=== PATIENT | female | born 1970 | race Caucasian/White ===

== ENCOUNTER 2018-06-28 11:33 | Day surgery (SDC) | payer BC ==
[2018-06-28 11:46] VITALS: BMI 25.4
[2018-06-28] MEDS ORDERED: SODIUM CHLORIDE 0.9% 500 ML INFUS.BAG IV ONE (12:38)
--- NOTE | 2018-06-28 12:42 | PDOC ---
Attending Attestation - Resident Resident Name: Lindy Cuello - ED Attending Attestation I have performed the following: I have examined & evaluated the patient, The case was reviewed & discussed with the resident, I agree w/resident's findings & plan, Exceptions are as noted - HPI HPI: 48 yo F history fibroids presents with heavy vaginal bleeding for weeks, now with lightheadedness, weakness. Sent by Dr. Dolan for evaluation for poss symptomatic anemia due to vaginal bleeding. - Physicial Exam PE: GENERAL: Awake, alert, and fully oriented, in no acute distress HEAD: No signs of trauma EYES: PERRLA, EOMI, sclera anicteric, conjunctiva pale ENT: Auricles normal inspection, hearing grossly normal, nares patent, oropharynx clear without exudates. Moist mucosa NECK: Normal ROM, supple, no lymphadenopathy, JVD, or masses LUNGS: Breath sounds equal, clear to auscultation bilaterally. No wheezes, and no crackles HEART: Regular rate and rhythm, normal S1 and S2, no murmurs, rubs or gallops ABDOMEN: Soft, nontender, normoactive bowel sounds. No guarding, no rebound. No masses EXTREMITIES: Normal range of motion, no edema. No clubbing or cyanosis. No cords, erythema, or tenderness NEUROLOGICAL: Cranial nerves II through XII grossly intact. Normal speech, normal gait. Motor and sensation intact. SKIN: Warm, Dry, normal turgor, no rashes or lesions noted. +Pallor. - Medical Decision Making Pt with weakness, found to have Hb 7. D/w Dr. Dolan, will admit.
[2018-06-28 13:17] LABS: BASO % 0.9 % (0-2.0); EOS % 0.5 % (0-4.5); HEMATOCRIT 22.8 % (32.4-45.2); LYMPH % 34.3 % (8-40); MCH 21.7 pg (25.7-33.7); MCHC 30.7 g/dl (32.0-36.0); MEAN CELL VOLUME 70.7 fl (80-96); MEAN PLT VOLUME 8.2 fl (7.5-11.1); NEUT % 60.3 % (42.8-82.8); PLATELET COUNT 366 K/MM3 (134-434); RBC 3.22 M/mm3 (3.60-5.2); RDW 16.9 % (11.6-15.6); WHITE BLOOD COUNT 7.9 K/mm3 (4.0-10.0)
[2018-06-28 13:31] LABS: INR 1.05 (0.83-1.09); PROTHROMBIN TIME (PATIENT) 12.4 SEC (9.7-13.0)
[2018-06-28 13:47] LABS: ALBUMIN 3.7 g/dl (3.4-5.0); ALK PHOS 94 U/L (45-117); ANION GAP 6 MMOL/L (8-16); BILIRUBIN,TOTAL 0.3 mg/dL (0.2-1); BLOOD UREA NITROGEN 8 mg/dL (7-18); CALCIUM 8.7 mg/dL (8.5-10.1); CHLORIDE 106 mmol/L (98-107); CO2 25 mmol/L (21-32); CREATININE 0.6 mg/dL (0.55-1.3); GLUCOSE,RANDOM 96 mg/dL (74-106); POTASSIUM 3.6 mmol/L (3.5-5.1); SGOT/AST 18 U/L (15-37); SGPT/ALT 18 U/L (13-61); SODIUM 137 mmol/L (136-145); TOT PROT 7.4 g/dl (6.4-8.2)
--- NOTE | 2018-06-28 13:47 | PDOC ---
History of Present Illness - General Chief Complaint: Blood Transfusion Stated Complaint: VAGINAL BLEEDING Time Seen by Provider: 06/28/18 11:55 History Source: Patient Exam Limitations: No Limitations - History of Present Illness Initial Comments: 06/28/18 13:49 This is a 48 YOF who is (had two children years after because of chronic health problems) who p/w heavy vaginal bleeding worsening over the past Past History - Past Medical History Allergies/Adverse Reactions: Allergies Allergy/AdvReac Type Severity Reaction Status Date / Time No Known Allergies Allergy Verified 06/28/18 11:41 Home Medications: Ambulatory Orders NK [No Known Home Medication] 06/28/18 COPD: No - Immunization History Immunization Up to Date: Yes - Suicide/Smoking/Psychosocial Hx Smoking History: Never smoked Hx Alcohol Use: No Drug/Substance Use Hx: No Substance Use Type: None *Physical Exam - Vital Signs Last Vital Signs Temp Pulse Resp BP Pulse Ox 92 H 18 134/77 100 06/28/18 11:42 06/28/18 11:42 06/28/18 11:42 06/28/18 11:42 ED Treatment Course - LABORATORY CBC & Chemistry Diagram: 06/28/18 12:40 06/28/18 12:40 - ADDITIONAL ORDERS Additional order review: Laboratory Results 06/28/18 12:40 PT with INR 12.40 INR 1.05 06/28/18 12:40 RBC 3.22 L MCV 70.7 L MCHC 30.7 L RDW 16.9 H MPV 8.2 Neutrophils % 60.3 Lymphocytes % 34.3 Monocytes % 4.0 Eosinophils % 0.5 Basophils % 0.9 - Medications Given in the ED: ED Medications Discontinued Medications Generic Name Dose Route Start Last Admin Trade Name Freq PRN Reason Stop Dose Admin Sodium Chloride 1,000 ml 06/28/18 12:38 06/28/18 13:00 Normal Saline - IV 06/28/18 12:39 1,000 ml ONCE ONE Administration Medical Decision Making - Medical Decision Making 06/28/18 13:[address] Ellsworth, informed her the patient arrived, Hgb is 7.0. Will do a pelvic exam to quantify bleeding/clots. *DC/Admit/Observation/Transfer Diagnosis at time of Disposition: Vaginal bleeding, Fibroids, Anemia - Discharge Dispostion Condition at time of disposition: Guarded Decision to Admit order: Yes - Referrals - Patient Instructions - Post Discharge Activity
[2018-06-28 15:24] LABS: ANISOCYTOSIS 1+; MACROCYTOSIS 0; PLATELET ESTIMATE NORMAL; ROULEAU 1+
[2018-06-28] MEDS ORDERED: SUCCINYLCHOLINE CHLORIDE 200 MG/10 ML VIAL ONE (16:53)
[2018-06-28] MEDS ORDERED: PROPOFOL 20 ML ONE (16:53)
--- NOTE | 2018-06-28 17:01 | HP ---
Admitting History and Physical - Admission Chief Complaint: Heavy vaginal bleeding, weakness. History of Present Illness: 48 yo with significant past medical history of fibroids who presented to the office early June with complaints of heavy vaginal bleeding for several weeks. Ultrasound examination revealed two dominant uterine fibroids. An endometrial biopsy was obtained, results were benign. Pt started on Tranexamic acid due to heavy bleeding. 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 Hgb 7.0 upon admission. Pt admitted to hospital with plan for blood transfusion and possible D&C. History Source: Patient, Medical Record Limitations to Obtaining History: No Limitations - Past Medical History Cardiovascular: No: HTN Pulmonary: No: Asthma Hepatobiliary: No: Hepatitis B, Hepatitis C Renal/: No: Renal Calculi, UTI Reproductive: Yes: Fibroids ...: No Heme/Onc: Yes: Anemia (due to acute blood loss) Psych: No: Bipolar, Depression - Past Surgical History Past Surgical History: Yes: None - Smoking History Smoking history: Never smoked - Alcohol/Substance Use Hx Alcohol Use: No - Social History ADL: Independent History of Recent Travel: No Home Medications - Allergies Allergies/Adverse Reactions: Allergies Allergy/AdvReac Type Severity Reaction Status Date / Time No Known Allergies Allergy Verified 06/28/18 11:41 - Home Medications Home Medications: Ambulatory Orders NK [No Known Home Medication] 06/28/18 Review of Systems - Review of Systems Constitutional: reports: Weakness Eyes: reports: No Symptoms HENT: reports: No Symptoms Neck: reports: No Symptoms Cardiovascular: denies: Chest Pain Respiratory: reports: SOB Gastrointestinal: reports: No Symptoms Genitourinary: reports: Vaginal Bleeding Breasts: reports: No Symptoms Reported Musculoskeletal: reports: No Symptoms Integumentary: reports: No Symptoms Endocrine: reports: No Symptoms Hematology/Lymphatic: reports: No Symptoms Psychiatric: reports: No Symptoms Physical Examination Vital Signs: Vital Signs Temperature Pulse Rate 100 H 06/28/18 15:50 Respiratory Rate 18 06/28/18 15:50 Blood Pressure 109/73 06/28/18 15:50 O2 Sat by Pulse Oximetry (%) 100 06/28/18 15:50 Constitutional: Yes: Well Nourished, No Distress, Calm Eyes: Yes: Conjunctiva Clear, EOM Intact HENT: Yes: Atraumatic, Normocephalic Neck: Yes: Supple Cardiovascular: Yes: Tachycardia Respiratory: Yes: WNL Gastrointestinal: Yes: Soft Renal/: Yes: Vaginal Bleeding, Other (uterine enlargement) Extremities: Yes: WNL Neurological: Yes: Alert, Oriented Psychiatric: Yes: Alert, Oriented Labs: CBC, BMP 06/28/18 12:40 06/28/18 12:40 Problem List - Problems (1) Anemia Code(s): D64.9 - ANEMIA, UNSPECIFIED (2) Fibroids Code(s): D21.9 - BENIGN NEOPLASM OF CONNECTIVE AND OTHER SOFT TISSUE, UNSP (3) Vaginal bleeding Code(s): N93.9 - ABNORMAL UTERINE AND VAGINAL BLEEDING, UNSPECIFIED Assessment/Plan Plan for blood transfusion and D&C pt aware of plan, agrees anesthesia aware and OR aware NPO
[2018-06-28] MEDS ORDERED: ACETAMINOPHEN 325 MG TABLET (FP) PO PRN (17:07)
[2018-06-28] MEDS ORDERED: MIDAZOLAM HCL 2 MG/2 ML SINGLE DOSE VIAL ONE (17:09)
[2018-06-28] MEDS ORDERED: LACTATED RINGERS SOLUTION 1,000 ML IV SCH ×2 (17:15→18:15)
[2018-06-28] MEDS ORDERED: ETOMIDATE 20 MG/10 ML AMPUL IVPUSH ONE (17:29)
[2018-06-28] MEDS ORDERED: ceFAZolin SODIUM 1 GM VIAL IVPB ONE (17:33)
[2018-06-28] MEDS ORDERED: ceFAZolin SODIUM 1 GM VIAL ONE (17:45)
[2018-06-28] MEDS ORDERED: DEXAMETHASONE SOD PHOSPHATE 4 MG/1 ML VIAL ONE (17:45)
[2018-06-28] MEDS ORDERED: ONDANSETRON 4 MG/2 ML VIAL IVPUSH PRN (18:05)
--- NOTE | 2018-06-28 20:03 | OP ---
Operative Note - Note: Operative Date: 06/28/18 Pre-Operative Diagnosis: Abnormal Uterine Bleeding, fibroids Operation: suction d&c Findings: moderate uterine bleeding Post-Operative Diagnosis: Same as Pre-op Surgeon: Irma Dolan Anesthesiologist/WEBSPHERE ADMINISTRATOR: Gonzales Herrera Anesthesia: General Specimens Removed: endometrial curettings Estimated Blood Loss (mls): 25 Operative Report Dictated: Yes
[2018-06-29 08:22] LABS: BASO % 0.1 % (0-2.0); HEMATOCRIT 29.7 % (32.4-45.2); HEMOGLOBIN 9.8 GM/dL (10.7-15.3); LYMPH % 12.3 % (8-40); MCHC 32.9 g/dl (32.0-36.0); MEAN PLT VOLUME 8.3 fl (7.5-11.1); MONO % 2.7 % (3.8-10.2); NEUT % 84.9 % (42.8-82.8); PLATELET COUNT 319 K/MM3 (134-434); RBC 3.91 M/mm3 (3.60-5.2); RDW 19.3 % (11.6-15.6); WHITE BLOOD COUNT 10.3 K/mm3 (4.0-10.0)
[2018-06-29 08:41] VITALS: BP 111/61; PULSE 80; TEMP 97.8
--- NOTE | 2018-06-29 08:59 | DS ---
Physical Exam-BAG LINER Vital Signs: Vital Signs Temperature 97.8 F 06/29/18 08:40 Pulse Rate 80 06/29/18 08:40 Respiratory Rate 18 06/29/18 08:40 Blood Pressure 111/61 06/29/18 08:40 O2 Sat by Pulse Oximetry (%) 98 06/29/18 06:30 Constitutional: Yes: No Distress Eyes: Yes: Conjunctiva Clear HENT: Yes: Atraumatic Neck: Yes: Supple Cardiovascular: Yes: Regular Rate and Rhythm Respiratory: Yes: Regular Gastrointestinal: Yes: Normal Bowel Sounds Vaginal Exam: Yes: Discharge (Bloody discharge) Cervix: Yes: Normal Uterus: Yes: Normal Breast(s): Yes: WNL Musculoskeletal: Yes: WNL Extremities: Yes: WNL Neurological: Yes: Alert, Oriented ...Motor Strength: WNL Psychiatric: Yes: Alert, Oriented Labs: CBC, BMP 06/29/18 07:30 06/28/18 12:40 Discharge Summary Reason For Visit: LEIOMYOMIA ANEMIA Current Active Problems Anemia (Acute) Fibroids (Acute) Vaginal bleeding (Acute) Procedures: Principal: D&C Hospital Course: Patient is status post Dilation and curettage. She received blood transfusion due to sever anemia. Condition: Stable - Instructions Diet, Activity, Other Instructions: Physical activity Resume your normal everyday activity as tolerated but no heavy lifting or strenuous exercise until seen by your surgeon. You may walk unlimited amounts and climb stairs. You may resume driving the car when you feel safe and comfortable behind the wheel. No sexual activity as instructed until cleared by Dr. Dolan. You may shower, no soaking in tubs/baths/pools for 2 weeks. Diet There are no dietary restrictions. Eat healthy, high-fiber foods. Drink 6 to 8 glasses of liquid each day. This will assist in keeping your bowels regular. Pain management You may take Tylenol as needed for pain. If you need anything stronger please contact your doctor. Call Dr. Rose for any of the following: Severe pain not relieved by medication Fever of 101 or higher Excessive bleeding or drainage on dressing Inability to urinate Call the office at [phone] for an appointment in 14 days. Referrals: Irma Dolan DO [Staff Physician] - Disposition: HOME - Home Medications Comprehensive Discharge Medication List: Ambulatory Orders NK [No Known Home Medication] 06/28/18
--- NOTE | 2018-06-29 18:07 | EKG ---
Test Reason : Blood Pressure : / mmHG Vent. Rate : 091 BPM Atrial Rate : 091 BPM P-R Int : 156 ms QRS Dur : 088 ms QT Int : 360 ms P-R-T Axes : 069 001 028 degrees QTc Int : 442 ms NORMAL SINUS RHYTHM LOW VOLTAGE QRS BORDERLINE ECG NO PREVIOUS ECGS AVAILABLE Confirmed by MARIJA AGRAWAL, RA ([id number]) on 06/29/2018 6:06:49 PM Referred By: Confirmed By:RA DUTTON MD
--- NOTE | 2018-07-02 16:38 | PATH ---
Surgical Pathology Report Patient Name: MARLA SCOTT [facility]. Rec. #: [id number] /Age/Gender: 1970 (Age: 48) / F Account: [id number] Location: AMBULATORY SURG Taken: 06/28/2018 Received: 07/01/2018 Reported: 07/02/2018 Physicians: PHYSICIAN EMERGENCY DEPT Irma Dolan M.D. Specimen(s) Received ENDOMETRIAL CURETTINGS Clinical History Abnormal uterine bleeding Final Diagnosis ENDOMETRIAL CURETTINGS, SUCTION DILATION AND CURETTAGE: POLYPOID FRAGMENTS OF STROMA AND ENDOCERVICAL TISSUE IN A BACKGROUND OF ACUTE INFLAMMATION, GRANULATION TISSUE, AND BLOOD. FRAGMENTS OF INACTIVE ENDOMETRIUM, LOWER UTERINE SEGMENT, AND BENIGN CERVICAL TISSUE. Comment: The polypoid fragments of stroma and endocervical tissue are suggestive of endocervical polyp. Suggest clinical and hysteroscopic correlation. Electronically Signed Dorothy Dee M.D. Gross Description Received in formalin labeled "uterine contents, endometrial curetting," is a 5.4 x 4.0 x 0.3 cm aggregate of maza-brown soft tissue fragments. The formalin is filtered and the specimen is entirely submitted in 4 cassettes. DL/07/01/2018 saudi07/01/2018
--- NOTE | 2018-07-04 09:54 | OP ---
DATE OF OPERATION: 06/28/2018 PREOPERATIVE DIAGNOSES: Abnormal uterine bleeding, uterine fibroids, anemia. POSTOPERATIVE DIAGNOSES: Abnormal uterine bleeding, uterine fibroids, anemia. PROCEDURE: Suction dilatation and curettage. SURGEON: Irma Dolan DO PATHOLOGY ASSISTANT: None. ANESTHESIA: General by Gonzales Herrera MD. ESTIMATED BLOOD LOSS: 25 mL SPECIMEN: Endometrial curettings. DISPOSITION: Stable to PACU. COMPLICATIONS: None. COUNT: Sponge and instrument count correct. BRIEF HISTORY AND PROCEDURE: Patient is a 48-year-old female who had been seen in my office with complaints of heavy uterine bleeding. The patient had an endometrial biopsy done in the office and was started on medication for medical management which failed. The patient was admitted through the emergency department for severe anemia and abnormal bleeding and was counseled on her options and elected to undergo a suction D&C procedure. Consents for the procedure were signed. The patient was taken to the operating room. She was given general anesthesia and placed in the dorsal lithotomy position. A hard timeout was performed. She was prepped and draped in the usual sterile fashion. A speculum was placed inside the vagina. The anterior lip of the cervix was easily visualized and grasped with a single-tooth tenaculum. Then, the cervix was dilated to accommodate a size 7 suction curette which was advanced to the fundus of the uterus. Several passes of the suction curette were completed. We then advanced a sharp curette. Four [place] of the uterus, sharp curettage was completed. uterine cry was appreciated, and minimal bleeding was noted from the cervical os. One final pass of the suction curette was taken, and all instruments were then removed from the vagina. All instruments were counted, reported to be correct. Patient tolerated the procedure well, was recovering in stable condition in the PACU after the procedure. IRMA DOLAN DO /[id number]
== END 2018-06-29 12:52 | disposition home or self-care (01) ==
LOC: JER 11:33 → JASUSAT 14:06 → J6S 16:15 → JASUSAT 06-29 12:52
PROVIDERS: ATTEND Obstetrics & Gynecology
PROC: 0UDB7ZX Extraction of Endometrium, Via Natural or Artificial Opening, Diagnostic (ICD-10-PCS; principal; 2018-06-28 17:12)
DX: D25.9 Leiomyoma of uterus, unspecified (principal); N93.9 Abnormal uterine and vaginal bleeding, unspecified; D64.9 Anemia, unspecified
CPT/HCPCS: 36415; 36430; 80053; 84703; 85025; 85610; 86850; 86900; 86901; 86922; 88305-TC; 93005; 93010; 94760; 99285-25; P9038; P9058